=== PATIENT | male | born 1995 | race American Indian/Alaskan Native ===

== ENCOUNTER 2019-04-29 12:35 | Emergency (ER) | payer SELFPAY ==
[2019-04-29 12:46] VITALS: BP 131/91
--- NOTE | 2019-04-29 12:46 | Event Note ---
ED Screening Note Date of service: 04/29/19 Time: 12:45 ED Screening Note: 23 y/o male comes in ER by referral by [employer] for having suicdial thought after being terminated from Work. Patient denies any SI/HI now. This initial assessment/diagnostic orders/clinical plan/treatment(s) is/are subject to change based on patients health status, clinical progression and re- assessment by fellow clinical providers in the ED. Further treatment and workup at subsequent clinical providers discretion. Patient/guardian urged not to elope from the ED as their condition may be serious if not clinically assessed and managed. Initial orders include:
--- NOTE | 2019-04-29 13:51 | Emergency Department Report ---
ED Psych HPI - General Chief Complaint: Psych Stated Complaint: EVALUATION Time Seen by Provider: 04/29/19 12:44 Source: patient Mode of arrival: Ambulatory Limitations: No Limitations - History of Present Illness Initial Comments: 23-year-old -Filipino male patient without significant medical history presents via police for a mental health evaluation times today. Patient states he became overwhelmed when he was told by his boss at work that he was temporarily terminated and stated that he was having thoughts of harming himself. Patient denies any previous history of depression, anxiety, or suicidal attempts. Patient states that he has a lot going on in his life and getting fired from his job was tipping point. Patient denies any current suicidal thoughts or plans. She does admit to having a gun in his home. MD Complaint: suicidal ideation -: Sudden Associated Psychiatric Symptoms: suicidal ideation Quality: resolved prior to arrival - Related Data Allergies Allergy/AdvReac Type Severity Reaction Status Date / Time No Known Allergies Allergy Unverified 04/29/19 12:38 ED Review of Systems ROS: Stated complaint: EVALUATION Other details as noted in HPI Comment: All other systems reviewed and negative Psychiatric: as per HPI. denies: auditory hallucinations, visual hallucinations ED Past Medical Hx - Past Medical History Previous Medical History?: No - Surgical History Past Surgical History?: No - Social History Smoking Status: Never Smoker Substance Use Type: None ED Physical Exam - General Limitations: No Limitations - Head Head exam: Present: atraumatic, normocephalic - Respiratory Respiratory exam: Present: normal lung sounds bilaterally. Absent: respiratory distress - Cardiovascular Cardiovascular Exam: Present: regular rate, normal rhythm. Absent: systolic murmur, diastolic murmur, rubs, gallop - Extremities Exam Extremities exam: Present: normal inspection - Neurological Exam Neurological exam: Present: alert, oriented X3 - Psychiatric Psychiatric exam: Present: normal affect, normal mood. Absent: agitated, anxious, homicidal ideation, suicidal ideation - Skin Skin exam: Present: warm, dry, intact, normal color. Absent: rash ED Course Vital Signs 04/29/19 12:44 Temperature 98.0 F Pulse Rate 51 L Respiratory 16 Rate Blood Pressure 131/91 O2 Sat by Pulse 100 Oximetry ED Medical Decision Making - Lab Data Result diagrams: 04/29/19 14:28 04/29/19 14:28 - Medical Decision Making Pt here for SI. Discussed with Dr. Leyva-recommends 1013 given pt has access to a gun at home. 1013 signed. Critical care attestation.: If time is entered above; I have spent that time in minutes in the direct care of this critically ill patient, excluding procedure time. ED Disposition Clinical Impression: Suicidal ideation Disposition: [id number] PSY HOSP/PSY UNIT Is pt being admited?: No Condition: Stable
[2019-04-29 15:34] LABS: Alanine Aminotransferase 12 units/L (7-56); Albumin 4.7 g/dL (3.9-5); BUN/Creatinine Ratio 11; Blood Urea Nitrogen 10 mg/dL (9-20); Calcium 9.5 mg/dL (8.4-10.2); Hemolysis Index 30
[2019-04-29 16:21] LABS: Basophils # (Auto) 0.1 K/mm3 (0.0-0.1); Basophils % (Auto) 1.4 % (0.0-1.8); Eosinophils % (Auto) 0.6 % (0.0-4.3); Hematocrit 45.1 % (35.5-45.6); Hemoglobin 14.6 gm/dl (11.8-15.2); Lymphocytes # (Auto) 1.3 K/mm3 (1.2-5.4); Lymphocytes % (Auto) 24.4 % (13.4-35.0); Mean Corpuscular HGB Conc 32 % (32-34); Mean Corpuscular Volume 78 fl (84-94); Monocytes # (Auto) 0.4 K/mm3 (0.0-0.8); Monocytes % (Auto) 6.4 % (0.0-7.3); Platelet Count 182 K/mm3 (140-440); Red Blood Count 5.78 M/mm3 (3.65-5.03); Red Cell Distribution Width 15.5 % (13.2-15.2)
== END 2019-04-29 15:30 | disposition left against medical advice (07) ==
LOC: ED 12:35
DX: R45.851 Suicidal ideations (principal)
CPT/HCPCS: 36415; 80053; 80320; 85025; G0480

== ENCOUNTER 2020-04-07 12:42 | Emergency (ER) | payer SELFPAY ==
[2020-04-07 13:13] VITALS: BP 104/62
== END 2020-04-07 19:25 | disposition left against medical advice (07) ==
LOC: ED 12:42
DX: R07.89 Other chest pain (principal); R06.02 Shortness of breath; Z53.21 Procedure and treatment not carried out due to patient leaving prior to being seen by health care provider
CPT/HCPCS: 93005